=== PATIENT | male | born 1940 | race Caucasian/White ===

== ENCOUNTER 2017-01-11 11:19 | Emergency (ER) | payer MEDICARE ==
[2017-01-11 11:49] VITALS: BP 175/83
--- NOTE | 2017-01-11 12:06 | ED ---
Laceration/Wound HPI - HPI Summary HPI Summary: 76M presents with lower lip laceration today s/p a aluminum pipe hit his lower lip. It also broke his partial dentures. He is not on any blood thinners. He denies any LOC or head injury. He can open his jaw completely. His lip continues to bleed. - History of Current Complaint Stated Complaint: LIP LAC Time Seen by Provider: 01/11/17 11:26 Pain Intensity: 2 - Allergy/Home Medications Allergies/Adverse Reactions: Allergies Allergy/AdvReac Type Severity Reaction Status Date / Time No Known Allergies Allergy Verified 04/15/14 16:14 PMH/Surg Hx/FS Hx/Imm Hx Endocrine/Hematology History: Denies: Hx Anticoagulant Therapy Cardiovascular History: Reports: Hx Hypertension Infectious Disease History: No Infectious Disease History: Denies: Traveled Outside the [place] in Last 30 Days - Family History Known Family History: Positive: Cardiac Disease - Social History Alcohol Use: Occasionally Substance Use Type: Reports: None Smoking Status (MU): Former Smoker Review of Systems Negative: Fever Negative: Chest Pain Negative: Shortness Of Breath Positive: Other - lip laceration All Other Systems Reviewed And Are Negative: Yes Physical Exam Triage Information Reviewed: Yes Vital Signs On Initial Exam: Initial Vitals Temp Pulse Resp BP Pulse Ox 97.6 F 58 16 174/98 98 01/11/17 11:19 01/11/17 11:19 01/11/17 11:19 01/11/17 11:19 01/11/17 11:19 Vital Signs Reviewed: Yes Appearance: Positive: Well-Appearing Skin: Positive: Warm, Dry, Other - 1cm flap like lip laceration of dry velvet of lower lip Head/Face: Positive: Normal Head/Face Inspection Eyes: Positive: Normal, Conjunctiva Clear ENT: Positive: Normal ENT inspection, Pharynx normal, TMs normal Dental: Positive: Other - 9 and 10 missing due to breaking partials Respiratory/Lung Sounds: Positive: Clear to Auscultation, Breath Sounds Present Cardiovascular: Positive: Normal, RRR Procedures - Laceration/Wound Repair 1 Location: Other - lower lip Description: Irregular Anesthesia: Local, 1.0% Length, Depth and Shape: 1cm superficial Irrigated w/ Saline (ccs): 100 Closure: Single Layer Suture Type: Chromic - 5-0 Number of Sutures: 3 Diagnostics - Vital Signs Vital Signs Temp Pulse Resp BP Pulse Ox 01/11/17 11:47 98.1 F 66 16 175/83 96 01/11/17 11:19 97.6 F 58 16 174/98 98 - Laboratory Lab Statement: Any lab studies that have been ordered have been reviewed, and results considered in the medical decision making process. Laceration Repair Course/Dx - Course Course Of Treatment: 76M presents with lower lip laceration today s/p a aluminum pipe hit his lower lip. It also broke his partial dentures. Placed 3 sutures in lip and bleeding was controlled. told to follow up with dentist about dentures. denies any heat trauma or LOC. has no step off on exam so did not image. patient understands and agrees with plan - Differential Dx Differental Diagnoses: Abrasion, Avulsion, Fracture, Laceration - Clinical Impression Provider Diagnoses: Lip laceration Discharge - Discharge Plan Condition: Good Disposition: HOME Patient Education Materials: Care For Your Absorbable Stitches (ED) Referrals: Diego Lang MD [Primary Care Provider] - Additional Instructions: Place ice on area Take Tylenol for pain as needed every 6 hours Sutures will absorb on own, can removed ends if like in 5 days Return to ED if develop any signs of infection Images - Images Dental: 1 - missing
== END 2017-01-11 12:17 | disposition home or self-care (01) ==
LOC: ED 11:19
DX: S01.511A Laceration without foreign body of lip, initial encounter (principal); W22.8XXA Striking against or struck by other objects, initial encounter; Y93.9 Activity, unspecified; Y92.89 Other specified places as the place of occurrence of the external cause; Z87.891 Personal history of nicotine dependence
CPT/HCPCS: 12011; 99282